=== PATIENT | female | born 1960 | race Two or more races ===

== ENCOUNTER 2018-11-05 12:47 | Emergency (ER) | payer OTHER ==
[~2018-11-05] VITALS: Ht 165.1 cm; Wt 95.3 kg
[~2018-11-05 12:47] MED LIST: IMODIUM A-D2 MG PO; PEPCID40 MG PO; PHENERGAN25 MG PO
== END 2018-11-05 18:02 | disposition home or self-care (01) ==
LOC: ER 12:47
DX: M54.16 Radiculopathy, lumbar region (principal); M54.5 Low back pain

== ENCOUNTER 2020-08-09 17:03 | Emergency (ER) | payer OTHER ==
[~2020-08-09] VITALS: Ht 160 cm; Wt 91.6 kg
[2020-08-09] MEDS ORDERED: TOPROL XL50 M1 (17:10)
[2020-08-09] MEDS ORDERED: PROBIOTIC1 EAC2 PO (20:17)
[2020-08-09] MEDS ORDERED: CIPRO500 MG PO (20:17)
[2020-08-09] MEDS ORDERED: FLAGYL500MG PO (20:17)
== END 2020-08-09 20:31 | disposition home or self-care (01) ==
LOC: ER 17:03
DX: R10.31 Right lower quadrant pain (principal); K57.32 Diverticulitis of large intestine without perforation or abscess without bleeding; Z20.822 Contact with and (suspected) exposure to COVID-19

== ENCOUNTER 2020-10-07 06:36 | Day surgery (SDC) | payer OTHER ==
[~2020-10-07 06:36] MED LIST changes: +CIPRO500 MG PO; +FLAGYL500MG PO; +PROBIOTIC1 EAC2 PO; +TOPROL XL50 M1
== END 2020-10-07 11:35 | disposition home or self-care (01) ==
LOC: AMB-ENDOS 06:36
PROVIDERS: ATTEND Surgery
DX: K62.89 Other specified diseases of anus and rectum (principal); Z20.828 Contact with and (suspected) exposure to other viral communicable diseases

== ENCOUNTER 2020-12-06 09:37 | Emergency (ER) | payer OTHER ==
[~2020-12-06] VITALS: Ht 162.6 cm; Wt 90.7 kg
[2020-12-06] MEDS ORDERED: NORFLEX100MG PO (13:21)
[2020-12-06] MEDS ORDERED: KETO10TA2 PO (13:21)
== END 2020-12-06 13:25 | disposition home or self-care (01) ==
LOC: ER 09:37
DX: M25.511 Pain in right shoulder (principal)

== ENCOUNTER 2021-09-17 16:03 | Emergency (ER) | payer OTHER ==
[~2021-09-17] VITALS: Ht 165.1 cm; Wt 104.3 kg
[~2021-09-17 16:03] MED LIST changes: +KETO10TA2 PO; +NORFLEX100MG PO
[2021-09-18] MEDS ORDERED: PROTONIX20 MG PO (01:41)
[2021-09-18] MEDS ORDERED: PEPCID20 MG PO (01:41)
[2021-09-18] MEDS ORDERED: CARAFATE1 GM PO (01:41)
[2021-09-18] MEDS ORDERED: PHENERGAN25 MG PO (01:42)
== END 2021-09-18 01:46 | disposition home or self-care (01) ==
LOC: ER 16:03
DX: K29.70 Gastritis, unspecified, without bleeding (principal); R10.13 Epigastric pain; I10 Essential (primary) hypertension

== ENCOUNTER 2022-06-19 19:34 | Emergency (ER) | payer OTHER ==
[~2022-06-19] VITALS: Ht 167.6 cm; Wt 84.4 kg
[~2022-06-19 19:34] MED LIST changes: +CARAFATE1 GM PO; +PEPCID20 MG PO; +PROTONIX20 MG PO
== END 2022-06-19 23:49 | disposition home or self-care (01) ==
LOC: ER 19:34
DX: N39.0 Urinary tract infection, site not specified (principal); I10 Essential (primary) hypertension

== ENCOUNTER 2023-07-01 13:44 | Emergency (ER) | payer OTHER ==
[~2023-07-01] VITALS: Ht 162.6 cm; Wt 105.2 kg
[2023-07-01] MEDS ORDERED: ECOTRIN81 MG PO (14:11)
[2023-07-01] MEDS ORDERED: ORPHENADRINE CITRATE 30 MG/ML AMPUL IM ONE (16:30)
[2023-07-01] MEDS ORDERED: KETOROLAC TROMETHAMINE 30 MG VIAL IM ONE (16:30)
[2023-07-01 17:11] LABS: PH,URINE 5.5 (5.0-8.0); URINE APPEARANCE Cloudy; URINE BILIRRUBIN Negative (NEGATIVE); URINE BLOOD Negative; URINE COLOR Yellow; URINE GLUCOSE Negative (NEGATIVE); URINE LEUKOCYTE Negative; URINE NITRATE Negative; URINE PROTEIN Negative (NEGATIVE); URINE UROBILINOGEN 0.2 E.U./dl
[2023-07-01 17:14] LABS: URINE BACTERIA 2183.3 uL (0.0-1933); URINE EPITHELIAL CELLS 17.1 uL (0.0-38.8); URINE RBC 5.7 uL (0.0-20.8); URINE WBC 29.6 uL (0.0-23.2)
[2023-07-01] MEDS ORDERED: DICLOFENAC SODI75 MG PO (19:09)
[2023-07-01] MEDS ORDERED: NORFLEX100MG PO (19:09)
== END 2023-07-01 19:17 ==
LOC: ER 13:45
PROVIDERS: Nurse Practitioner Family
DX: M62.830 Muscle spasm of back (principal); M51.36 Other intervertebral disc degeneration, lumbar region; I10 Essential (primary) hypertension

== ENCOUNTER 2024-03-01 22:54 | Emergency (ER) | payer OTHER ==
[~2024-03-01] VITALS: Ht 165.1 cm; Wt 104.3 kg
[~2024-03-01 22:54] MED LIST changes: +DICLOFENAC SODI75 MG PO; +ECOTRIN81 MG PO
[2024-03-01] MEDS ORDERED: KETOROLAC TROMETHAMINE 30 MG VIAL IV ONE (23:45)
[2024-03-01] MEDS ORDERED: 0.9 % SODIUM CHLORIDE 500 ML IV SCH (23:45)
[2024-03-02 00:05] LABS: HEMATOCRIT 41.5 % (36.0-45.00); MEAN CELL VOLUME 85.9 fL (80.00-100.00); MEAN CORPUSCULAR HGB CONC 33.7 g/dl (32.0-36.0); PLATELET COUNT 286 K/uL (150-450); RED BLOOD COUNT 4.83 M/uL (4.00-6.00); RED CELL DISTRIBUTION WIDTH 13.5 % (11.5-14.5)
[2024-03-02 00:24] LABS: PH,URINE 5.5 (5.0-8.0); URINE APPEARANCE Clear; URINE BILIRRUBIN Negative (NEGATIVE); URINE BLOOD Negative; URINE COLOR Yellow; URINE GLUCOSE Negative (NEGATIVE); URINE KETONE Negative (NEGATIVE); URINE LEUKOCYTE Negative; URINE NITRATE Negative; URINE PROTEIN Negative (NEGATIVE); URINE UROBILINOGEN 0.2 E.U./dl
[2024-03-02 00:28] LABS: URINE BACTERIA 1074.7 uL (0.0-1933); URINE EPITHELIAL CELLS 14.8 uL (0.0-38.8); URINE RBC 2.5 uL (0.0-20.8); URINE WBC 13.1 uL (0.0-23.2)
[2024-03-02 00:49] LABS: ALBUMIN 4.1 gm/dL (3.4-5.0); BILIRUBIN TOTAL 0.51 mg/dL (0.3-1.2); CALCIUM 9.8 mg/dL (8.5-10.1); CREATININE SERUM 0.9 mg/dL (0.55-1.02); GFR 63.24; GLOBULINA 4.2 G/DL (2.4-3.5); POTASSIUM 4.25 mEq/L (3.5-5.1); TOTAL PROTEIN 8.3 gm/dL (6.4-8.2)
[2024-03-02] MEDS ORDERED: PROTONIX40 MG PO (02:26)
[2024-03-02] MEDS ORDERED: METRONIDAZOLE500 MG PO (02:26)
[2024-03-02] MEDS ORDERED: LEVSIN/SL0.125 MG SL (02:26)
[2024-03-02] MEDS ORDERED: INTESTINEX680 M1 PO (02:26)
[2024-03-02] MEDS ORDERED: CIPRO500 MG PO (02:26)
[2024-03-02] MEDS ORDERED: FAMOTIDINE/PF 20 MG in 0.9 % SODIUM CHLORIDE 8 ML IV PUSH STA (02:27)
[2024-03-02] MEDS ORDERED: PIPERACILLIN/TAZOBACTAM SODIUM 3.375 GM VIAL IV ONE (02:30)
[2024-03-02] MEDS ORDERED: DIPHENHYDRAMINE HCL 50 MG/ML VIAL 1ML IV STA (03:17)
== END 2024-03-02 04:14 | disposition home or self-care (01) ==
LOC: ER 22:54
PROVIDERS: Emergency Medicine
DX: K57.30 Diverticulosis of large intestine without perforation or abscess without bleeding (principal); D25.9 Leiomyoma of uterus, unspecified